=== PATIENT | male | born 1950 | race Caucasian/White ===

== ENCOUNTER 2018-10-22 16:27 | Inpatient (IN) ==
[2018-10-22 17:53] LABS: BILIRUBIN URINE NEGATIVE (NEGATIVE); BLOOD URINE TRACE (NEGATIVE); CLARITY CLEAR (CLEAR); COLOR YELLOW; GLUCOSE URINE NEGATIVE (NEGATIVE); KETONE URINE 1+(Small) mg/dL (NEGATIVE); LEUKOCYTES URINE 1+ (NEGATIVE); NITRITE URINE NEGATIVE (NEGATIVE); PH URINE 6.5; PROTEIN URINE 1+(30 mg/dL) mg/dL (NEGATIVE); UROBILINOGEN URINE 1 mg/dL
[2018-10-22 18:00] LABS: URINE SOURCE CLEAN CATCH
[2018-10-22 18:01] LABS: URINE RBC <10 /HPF (<10); URINE WBC 20-40 /HPF (<10)
[2018-10-22 18:02] LABS: URINE BACTERIA 2+ /HFP; URINE CAST NONE SEEN /LPF; URINE CRYSTAL NONE SEEN /HPF; URINE EPITHELIAL CELLS <10 /HPF (<10); URINE YEAST NONE SEEN /HPF
[2018-10-22] MEDS ORDERED: MOTRIN PO ONE (21:02)
[2018-10-22 21:08] LABS: BASO# 0.01 X1000 (0.0-0.2); BASO% 0.1 % (0.0-0.8); EOS# 0.01 X1000 (0.0-0.7); EOS% 0.1 % (0.0-10.0); HEMATOCRIT 35.9 % (42.0-52.0); HEMOGLOBIN 12.3 g/dL (14.0-18.0); IMM GRAN# 0.08 X1000 (0.0-0.04); IMM GRAN% 0.7 % (0.0-0.5); LYMPH# 1.68 X1000 (1.2-3.4); LYMPH% 15.3 % (20.5-51.1); MCH 31.9 PG (27-31); MCHC 34.3 g/dL (33-37); MONO# 1.03 X1000 (0.11-0.59); MONO% 9.4 % (1.7-9.3); MPV 9.4 FL (7.4-10.4); NEUT# 8.15 X1000 (1.4-6.5); NEUT% 74.4 % (42.2-75.2); PLT 132 X1000 (130-400); RBC 3.86 XMIL (4.7-6.1); RDW 13.8 % (11.5-14.5); WBC 10.96 X1000 (4.8-10.8)
[2018-10-22 21:14] LABS: AGAP 13; BUN 18 mg/dL (8-22); CALCIUM 8.4 mg/dL (8.8-10.2); CHLORIDE 96 mmol/L (98-107); COSMO 268; ESTIMATED GFR > 60; GLUCOSE 121 mg/dL (70-104); POTASSIUM 4.7 mmol/L (3.5-5.1); SODIUM 132 mmol/L (136-145); TCO2 23 mmol/L (25-35)
[2018-10-22] MEDS ORDERED: TYLENOL PO ONE (21:40)
--- NOTE | 2018-10-22 21:48 | Diag Imaging Result Doc PS360 ---
EXAM: CT RENAL STONE SEARCH 10/22/2018 HISTORY: UTI,fever TECHNIQUE: This exam was performed using automated exposure control, adjustment of mA or kV according to patient size, and/or use of iterative reconstruction technique. COMMENT: There are linear opacities in both lower lobes consistent with atelectasis or fibrosis. There are no previous studies. There is no evidence of nephrolithiasis or hydronephrosis. There are no apparent gallstones. There is stool throughout the colon. Small bowel is not distended. There is no evidence of appendicitis. There is no evidence of free fluid. There is enlargement of the prostate with some periprostatic fat stranding. The prostate is nearly 7 cm in diameter transversely. There are numerous lytic lesions throughout the regional skeleton particularly in the iliac bones sacrum and lumbar spine. This is consistent with the history of multiple myeloma. IMPRESSION: Findings consistent with prostatitis. Electronically signed by Tam Triana 10/22/2018 9:45 PM
--- NOTE | 2018-10-23 00:35 | PROVIDER DOCUMENTATION ---
This chart was entered by Sonia Romero Scribe, acting as scribe for Narda Jenkins MD. HPI-Male Problem - General Chief Complaint: Male Stated Complaint: MALE Time Seen by Provider: 10/22/18 17:36 Source: patient Allergies/Adverse Reactions: Patient Allergies Allergy/AdvReac Type Severity Reaction Status Date / Time levofloxacin [From Levaquin] AdvReac ITCHING Verified 10/22/18 16:43 RELEFEN AdvReac HIVES Uncoded 10/22/18 16:42 Home Medications: Home Medication List Medication Instructions Recorded Confirmed Last Taken Type NK [No Home Medications] 10/22/18 10/22/18 Unknown History - History of Present Illness-Male Nature of Presenting Problem: pt is a 68 yr old male presenting with 1 week hx of dysuria and fever, pt reports dysuria since cystoscopy 1 week ago. Tmax 103, pt went to urgent care today and was sent here for further eval. pt denies any chest or abdominal pain, no cough, nasal drainage or sore throat. pt denies any other complaints. Location of Complaint: reports: urethral Radiation: reports: none Quality of Pain: reports: burning Severity in ED: reports: moderate Onset/Duration: reports: 1 week ago Timing: reports: still present Context/Activities at Onset: reports: other (cystoscopy 1 week ago) Urinary Symptoms: reports: dysuria. denies: hematuria, low back pain Associated Symptoms: reports: none Associated Symptoms: reports: fever/chills. denies: chest pain, cough, fatigue, nausea, vomiting, weakness Similar Symptoms Previously?: Yes Recently seen or treated by another doctor?: Yes Review of Systems - Adult - REVIEW OF SYSTEMS - ADULT Constitutional: reports: fever (tmax 103) Eyes: reports: no symptoms reported Ears, Nose, Mouth & Throat: denies: ear pain, throat pain Cardiovascular: denies: chest pain, palpitations, syncope Respiratory: denies: cough, shortness of breath Gastrointestinal: denies: abdominal pain, diarrhea, nausea, vomiting Genitourinary: reports: dysuria. denies: flank pain Musculoskeletal: denies: back pain, muscle aches, neck pain Integumentary: reports: no symptoms reported Neurological: denies: dizziness/vertigo, headache/migraines Psychiatric: reports: no symptoms reported Endocrine: reports: no symptoms reported Hematologic/Lymphatic: reports: other (report IG defeciency) Past History - Adult - PAST MEDICAL HISTORY-ADULT Review of Records: reports: Old Records Reviewed, Nursing Assessment Review, Medications Reviewed, Social history reviewed & non-contributory. Major Childhood Illnesses: reports: denies history Cardiovascular: reports: denies history Respiratory: reports: denies history Gastrointestinal: reports: denies history Obstetrical/Gynecological: reports: denies history Genitourinary: reports: denies history Musculoskeletal: reports: denies history Neurological: reports: denies history Endocrine/Immune: reports: denies history Other Conditions: reports: denies history - IMMUNIZATION STATUS Childhood Immunizations: See Nurse Assessment Flu Vaccine: See Nurse Assessment - FAMILY HISTORY Family History: reviewed, not pertinent - SOCIAL HISTORY Smoking: denies Substance Use: denies Living Situation: family Physical Exam-General - PHYSICAL EXAM-ADULT Initial Vital Signs Reviewed: Yes - CONSTITUTIONAL General Appearance: alert, no apparent distress - EYES Eyes: PERRL/EOMI - HEAD, EARS, NOSE, MOUTH & THROAT HENMT: normocephalic/atraumatic, moist mucous membranes, normal ENT inspection - NECK Neck: non-tender, full range of motion, supple, normal inspection - RESPIRATORY Respiratory: chest non-tender, lungs clear, normal breath sounds - CARDIOVASCULAR Cardiovascular: normal peripheral pulses, regular rate, rhythm, no edema - GASTROINTESTINAL (ABDOMEN) Abdominal Exam: normal bowel sounds, non tender, soft - GENITOURINARY Male Genitalia: deferred - MUSCULOSKELETAL Back Exam: no CVA tenderness, no vertebral tenderness Extremity: normal range of motion, non-tender, normal gait, normal inspection - SKIN Integumentary: normal color, normal turgor, warm/dry - NEUROLOGIC Neurologic: grossly normal, no motor/sensory deficits Progress - PLAN OF CARE/RESULTS Progress/Plan/Lab Results: Vital Signs - 8 hr 10/22/18 16:34 10/22/18 20:47 Temperature 98.9 F 102.5 F H Pulse Rate 90 90 Respiratory Rate 18 15 Blood Pressure 135/79 O2 Sat by Pulse Oximetry 95 95 Laboratory Results - last 24 hr 10/22/18 10/22/18 10/22/18 16:45 19:05 19:05 WBC 10.96 H RBC 3.86 L Hgb 12.3 L Hct 35.9 L MCV 93.0 MCH 31.9 H MCHC 34.3 RDW Std Deviation 13.8 Plt Count 132 MPV 9.4 Immature Gran % (Auto) 0.7 H Neut % (Auto) 74.4 Lymph % (Auto) 15.3 L [place] % (Auto) 9.4 H Eos % (Auto) 0.1 Baso % (Auto) 0.1 Immature Gran # (Auto) 0.08 H Neut # (Auto) 8.15 H Lymph # (Auto) 1.68 [place] # (Auto) 1.03 H Eos # (Auto) 0.01 Baso # (Auto) 0.01 Sodium Potassium Chloride Carbon Dioxide Anion Gap BUN Creatinine Estimated GFR/1.73 m2 BUN/Creatinine Ratio Glucose Calculated Osmolality Calcium Plasma Lactate PSA Diagnostic 118.60 H Urine Source CLEAN CATCH Urine Color YELLOW Urine Clarity CLEAR Urine pH 6.5 Ur Specific [place] 1.010 Urine Protein 1+(30 mg/dL) A Urine Ketones 1+(Small) A Urine Blood TRACE Urine Nitrite NEGATIVE Urine Bilirubin NEGATIVE Urine Urobilinogen 1 Urine Microscopic RBC <10 Urine WBC 1+ A Urine Microscopic WBC 20-40 A Ur Epithelial Cells <10 Urine Crystals NONE SEEN Urine Bacteria 2+ Urine Casts NONE SEEN Urine Yeast NONE SEEN Urine Glucose NEGATIVE 10/22/18 10/22/18 19:05 21:10 WBC RBC Hgb Hct MCV MCH MCHC RDW Std Deviation Plt Count MPV Immature Gran % (Auto) Neut % (Auto) Lymph % (Auto) [place] % (Auto) Eos % (Auto) Baso % (Auto) Immature Gran # (Auto) Neut # (Auto) Lymph # (Auto) [place] # (Auto) Eos # (Auto) Baso # (Auto) Sodium 132 L Potassium 4.7 Chloride 96 L Carbon Dioxide 23 L Anion Gap 13 BUN 18 Creatinine 1.0 Estimated GFR/1.73 m2 > 60 BUN/Creatinine Ratio 18 Glucose 121 H Calculated Osmolality 268 Calcium 8.4 L Plasma Lactate 1.4 PSA Diagnostic Urine Source Urine Color Urine Clarity Urine pH Ur Specific [place] Urine Protein Urine Ketones Urine Blood Urine Nitrite Urine Bilirubin Urine Urobilinogen Urine Microscopic RBC Urine WBC Urine Microscopic WBC Ur Epithelial Cells Urine Crystals Urine Bacteria Urine Casts Urine Yeast Urine Glucose Orders Category Date Time Status Admit - [facility] Routine AdmDCTranf 10/22/18 22:28 Active Vital Signs Order ROUTINE Care 10/22/18 20:[address] RENAL STONE SEARCH [CT] Stat Exams 10/22/18 21:01 Completed BLOOD CULTURE [BLDCUL] Stat Lab 10/22/18 21:10 Results BMP [BASIC METABOLIC PANEL] [CHEM] Stat Lab 10/22/18 19:05 Completed CBC WITH ELECTRONIC DIFF [HEME] Stat Lab 10/22/18 19:05 Completed LACTATE, PLASMA [CHEM] Stat Lab 10/22/18 21:10 Completed PSA DIAGNOSTIC Stat Lab 10/22/18 19:[address] W/POSS RFLX CULT [URINALYSIS] Stat Lab 10/22/18 16:45 Completed URINE CULTURE [RM] Routine Lab 10/22/18 16:45 Received Acetaminophen [Tylenol] Med 10/22/18 21:40 Discontinued 650 mg PO NOW ONE Ibuprofen [Motrin] Med 10/22/18 21:02 Discontinued 600 mg PO NOW ONE Transfer/Admit Order [TRANSFER] Routine Transfer 10/22/18 22:29 Ordered Patient care, assessment and plan discussed with the attending physician Dr. Arroyo and he agree with the plan as documented. Result Diagrams: 10/22/18 19:05 10/22/18 19:05 - REASSESSMENT Reassessment #1 Time Reassessed: 21:36 Status: unchanged (Patient has chills and fever. will admit for IV antibiotics.) - CONSULTS/PCP/HOSPITALIST Notification #1 *Consult/PCP/Hospitalist*: Dr. Noonan Time Discussed: 22:18 Consult Disposition: Admit (Hx, PE and patient care discussed. accepted.) Departure - Departure Date of Disposition Decision: 10/22/18 Time of Disposition Decision: 22:17 DIAGNOSIS: Prostatitis Qualifiers: Prostatitis type: acute Qualified Code(s): N41.0 - Acute prostatitis Fever Qualifiers: Fever type: unspecified Qualified Code(s): R50.9 - Fever, unspecified Disposition: ADMITTED INPATIENT 09 Certified Medical Emergency: Emergent Condition: Stable Referrals and Follow-Ups: None,PCP [Primary Care Provider] - - Critical Care Note This patient required my direct & personal management of CC.: No Attestation - Physician/ DELTA Attestation Patient care was provided by Advanced Practice Provider:: No The physician spent face to face time with patient:: Yes Advanced Practice Provider documentation review:: Supervising physician onsite and consulted in the evaluation and care of this patient. The physician did have a face to face encounter with the patient. This chart was documented by the indicated scribe, (Sonia Romero Scribe) and accurately reflects the services I performed and decisions made by me, Narda Jenkins MD, as attested by the provider's signature.
[2018-10-23] MEDS ORDERED: TYLENOL PO ONE (05:46)
[2018-10-23] MEDS ORDERED: ZOFRAN IV PRN (08:47)
[2018-10-23] MEDS: ROCEPHIN 1 GM in NS 50 ML IV SCH (09:47)
[2018-10-23] MEDS: NS 1,000 ML IV SCH (09:50)
[2018-10-23] MEDS: FLOMAX PO SCH (09:50)
--- NOTE | 2018-10-23 10:40 | HISTORY AND PHYSICAL ---
PRIMARY CARE PHYSICIAN: None. CHIEF COMPLAINT: Low back pain, pain with urination, and a fever that has been present for approximately 1 week and progressively worsened. HISTORY OF PRESENTING ILLNESS: This is a 68-year-old male, who presented to [facility] ER after he was seen at [facility] and diagnosed with a UTI, but they told him that since he had a cystoscopy approximately 1 week ago that he would need IV antibiotics so he presented to the emergency room. On arrival, he was found to have a white blood cell count of 10.96, sodium of 132. PSA diagnostic of 118.6. His urinalysis showed negative nitrites, 1+ white blood cells, and 2+ bacteria. We did a renal CT that showed findings consistent with prostatitis. Approximately 4 hours after arriving, he had a temperature of 102.5 degrees. He notes that he has been being followed at [facility], and had some abnormal lab values showing some type of autoimmune disorder and a possible blood cancer, but they have not been able to pinpoint at this time a specific diagnosis of what is going on currently. He was recently placed on tamsulosin for some BPH issues. He had a cystoscopy done by his urologist in [place], Dr. Michel who wanted to do a "resume" procedure that inserts semen into the prostate in order to shrink it but the cystoscopy had to be performed first in order to determine if he was a candidate for this procedure. He has had some CVA tenderness, frequency, dysuria and fever so he is being admitted for further evaluation and treatment. PAST MEDICAL HISTORY: BPH. PAST SURGICAL HISTORY: Cystoscopy one week ago. FAMILY HISTORY: Reviewed and noncontributory. SOCIAL HISTORY: He currently lives with family. Denies any tobacco, alcohol or illicit drug use. ALLERGIES: He is allergic to Levaquin and Relafen. HOME MEDICATIONS: Tamsulosin 0.4 mg p.o. daily. LABORATORY DATA: White blood cell count of 10.96, hemoglobin 12.3, hematocrit 35.9, and platelets 132,000. Sodium 132, potassium 4.7, chloride 96, CO2 23, BUN of 18, creatinine 1, glucose 121, plasma lactate of 1.4. PSA diagnostic of 118.60. Urinalysis showed negative nitrites, 1+ white blood cells, 2+ bacteria. Renal CT showed findings consistent with prostatitis. REVIEW OF SYSTEMS: He was positive for a subjective fever and chills. Denied any blurred vision. He has had some dizziness. Denied any chest pain, coughing, or shortness of breath. Denied any abdominal pain, but had some low back pain, CVA tenderness, dysuria or frequency. Denied any nausea, vomiting, constipation, diarrhea, or burning. PHYSICAL EXAMINATION: On arrival, he had a temperature of 98.9 degrees, pulse 90, respirations 18 and was saturating 95% on room air. Approximately 4 hours after arriving, he had a temperature of 102.5 degrees, blood pressure was 135/79 and currently temperature is down to 98.5. GENERAL: This is a 68-year-old male, who is sitting up in the bed and answers questions appropriately. HEENT: Normocephalic, atraumatic. Normal ENT inspection. Oropharynx and nares are clear. EYES: Pupils are equal, round, reactive to light and accommodation. Extraocular movements are intact. NECK: Normal inspection. Normal range of motion. LUNGS: Clear to auscultation bilaterally with equal lung expansion and chest wall movement. HEART: Regular rate and rhythm. No murmurs, rubs, or gallops. ABDOMEN: Soft, nontender, nondistended. Bowel sounds are present x4 quadrants. He did have some CVA tenderness with low back pain. MUSCULOSKELETAL: He had 5/5 strength x4 extremities. NEUROLOGICAL: Cranial nerves 2-12 appear grossly intact. ASSESSMENT: 1. Prostatitis. 2. Hyponatremia. 3. Possible urinary tract infection. Awaiting urine culture results. 4. BPH without obstruction. PLAN: He has been admitted to the medical unit at [facility], and placed on a regular diet. Blood culture and urine cultures are pending. I will place on normal saline at 125 mL an hour, Rocephin 1 gram IV q.24. Continue his home medications and further orders after being seen by attending. Dictated by ISAK Benton for Hussain Brandt MD cc: ISAK Benton MD Gregory S. Cheatham, MD [facility]
[2018-10-23] MEDS ORDERED: AMBIEN PO PRN (13:18)
[2018-10-23] MEDS ORDERED: VANCOMYCIN IV PER PHARMACY MISC SCH (13:30)
--- NOTE | 2018-10-23 13:36 | HISTORY AND PHYSICAL ---
HISTORY OF PRESENT ILLNESS: Patient came in with fever up to 103. He went to [facility]. They told him since he had a recent cystoscopy, he needed to go to the ER. He was found to have prostatitis and was admitted for treatment. He has had a cystoscopy for the purposes of BPH. His urine did show pyuria, although not grossly so. Urine culture and blood cultures are negative thus far. He has been placed on Rocephin now. Physical exam is really unremarkable. He has not had any fevers since last night. Workup in the ER was unremarkable, except for CT showed also signs consistent with prostatitis, although he is still having some degree of dysuria. ASSESSMENT AND PLAN: In any case, he was admitted for prostatitis. Certainly could be Staph because he had recent hospitalization, so we will continue to follow closely. He is allergic unfortunately to fluoroquinolones. He gets tenosynovitis, tendinitis, so we cannot use that. So our purposes here, we will treat him with Rocephin. I am going to add vancomycin just to better cover Staph, but we could strongly consider discharging him on Bactrim for a month, which should cover Staph. We are just waiting final culture results. Hopefully, we will get those tomorrow. cc: MD Ke Johnson MD
[2018-10-23] MEDS: VANCOMYCIN 2,000 MG in NS 500 ML IV SCH (15:22)
[2018-10-23] MEDS: TYLENOL PO PRN (20:17)
[2018-10-24] MEDS: NS 1,000 ML IV SCH (04:24)
[2018-10-24 06:24] LABS: BASO# 0.02 X1000 (0.0-0.2); BASO% 0.2 % (0.0-0.8); EOS# 0.03 X1000 (0.0-0.7); EOS% 0.3 % (0.0-10.0); HEMATOCRIT 34.8 % (42.0-52.0); HEMOGLOBIN 11.7 g/dL (14.0-18.0); IMM GRAN# 0.18 X1000 (0.0-0.04); LYMPH# 1.74 X1000 (1.2-3.4); LYMPH% 19.7 % (20.5-51.1); MCH 31.1 PG (27-31); MCHC 33.6 g/dL (33-37); MCV 92.6 FL (81-99); MONO# 0.98 X1000 (0.11-0.59); MONO% 11.1 % (1.7-9.3); MPV 9.2 FL (7.4-10.4); NEUT# 5.89 X1000 (1.4-6.5); NEUT% 66.7 % (42.2-75.2); PLT 155 X1000 (130-400); RBC 3.76 XMIL (4.7-6.1); RDW 14.2 % (11.5-14.5); WBC 8.84 X1000 (4.8-10.8)
[2018-10-24] MEDS: TYLENOL PO PRN (06:31)
[2018-10-24 06:48] LABS: AGAP 11; BUN 15 mg/dL (8-22); CALCIUM 8.5 mg/dL (8.8-10.2); CHLORIDE 100 mmol/L (98-107); COSMO 273; CREATININE 0.9 mg/dL (0.7-1.2); ESTIMATED GFR > 60; GLUCOSE 111 mg/dL (70-104); POTASSIUM 4.3 mmol/L (3.5-5.1); SODIUM 136 mmol/L (136-145); TCO2 25 mmol/L (25-35)
[2018-10-24 07:19] LABS: EOS 1 % (1-10); LYMPHS 26 % (21-51); MONO 11 % (1-9); SEGS 61 % (42-75)
[2018-10-24] MEDS: ROCEPHIN 1 GM in NS 50 ML IV SCH (08:43)
[2018-10-24] MEDS: FLOMAX PO SCH (08:44)
[2018-10-24] MEDS: VANCOMYCIN 2,000 MG in NS 500 ML IV SCH (09:37)
--- NOTE | 2018-10-24 14:43 | PROGRESS NOTE ---
DATE: 10/24/2018 SUBJECTIVE: The patient has no complaints. He felt a little off this morning, and he thought he was having a fever, so he went ahead and he took his Tylenol this morning, but he has not had an actual fever since yesterday. He is still complaining of difficulty urinating, pain kind od internally. PROBLEM LIST: 1. Prostatitis, likely iatrogenic or associated with now gram-positive cocci. It is suspicious for Staph. He is on vancomycin and Rocephin until we can get further data. He has defervesced though, and he seems to be doing better. 2. Benign prostatic hypertrophy. We will continue Flomax. He has had issues with Flomax before associated with orthostasis. Will just have to be careful. I think we can hold off on further fluid. 3. 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 We are aware of diagnosis and follow. He does have some osteolytic lesions, which have been worked up previously with his oncologist Dr. Richardson. We will defer to him. His PSA is elevated, but according to the patient was 2.8 in June. I do not think he has prostate cancer at this point, but he is being followed closely by Urology and Dr. Michel in [place]. We will arrange close follow up with him, especially since he has prostatitis after a cystoscopy. Anticipate discharge tomorrow. cc: Hussain Brandt MD
[2018-10-25] MEDS: VANCOMYCIN 2,000 MG in NS 500 ML IV SCH (02:37)
[2018-10-25 05:42] VITALS: BP 126/65
[2018-10-25 06:47] LABS: BASO# 0.08 X1000 (0.0-0.2); BASO% 1.4 % (0.0-0.8); EOS# 0.07 X1000 (0.0-0.7); EOS% 1.3 % (0.0-10.0); HEMATOCRIT 30.2 % (42.0-52.0); HEMOGLOBIN 10.4 g/dL (14.0-18.0); IMM GRAN# 0.35 X1000 (0.0-0.04); IMM GRAN% 6.3 % (0.0-0.5); LYMPH# 1.53 X1000 (1.2-3.4); LYMPH% 27.5 % (20.5-51.1); MCHC 34.4 g/dL (33-37); MCV 92.9 FL (81-99); MONO# 0.74 X1000 (0.11-0.59); MONO% 13.3 % (1.7-9.3); MPV 9.3 FL (7.4-10.4); NEUT# 2.79 X1000 (1.4-6.5); NEUT% 50.2 % (42.2-75.2); PLT 162 X1000 (130-400); RBC 3.25 XMIL (4.7-6.1); RDW 14.1 % (11.5-14.5); WBC 5.56 X1000 (4.8-10.8)
[2018-10-25 06:55] LABS: AGAP 8; BUN 15 mg/dL (8-22); CALCIUM 8.3 mg/dL (8.8-10.2); CHLORIDE 105 mmol/L (98-107); COSMO 277; CREATININE 0.8 mg/dL (0.7-1.2); ESTIMATED GFR > 60; GLUCOSE 105 mg/dL (70-104); POTASSIUM 3.8 mmol/L (3.5-5.1); SODIUM 138 mmol/L (136-145); TCO2 26 mmol/L (25-35)
[2018-10-25 07:06] LABS: BANDS 4 % (0-1); EOS 3 % (1-10); LYMPHS 21 % (21-51); MONO 10 % (1-9); SEGS 62 % (42-75)
[2018-10-25] MEDS: FLOMAX PO SCH (09:29)
[2018-10-25] MEDS: ROCEPHIN 1 GM in NS 50 ML IV SCH (09:31)
[2018-10-25] MEDS ORDERED: AMOXIL PO SCH (13:00)
--- NOTE | 2018-10-25 15:28 | DISCHARGE SUMMARY ---
ADMISSION DATE: 10/23/2018 DISCHARGE DATE: 10/25/2018 DISCHARGE DIAGNOSIS: Prostatitis. HISTORY: The patient is doing okay. On the day of discharge, he had a little bit of loose stool but I am not sure if that may not have been the first bowel movement he has had in a while. His white count is down. He has been afebrile now for over 48 hours. Micro shows Enterococcus faecalis which is pansensitive. The plan will be to discharge on amoxicillin, currently regulated. My recommendations are for 6 weeks for prostatitis, seems like a bit long and puts him at risk for C. Diff which we discussed about. I would at least treat for a month. I think that would be reasonable, and that is what I told him. Follow up with his urologist who can decide. Discharge condition is stable. Continue regular medications. We reviewed C. Diff risk and dehydration, and things of that nature. He will need to follow up with his urologist in about a couple of weeks. This is a [id number] encounter note with ISAK Benton. cc: Hussain Brandt MD
--- NOTE | 2018-10-25 15:40 | DISCHARGE SUMMARY ---
ADMISSION DATE: 10/23/2018 DISCHARGE DATE: 10/25/2018 ADMISSION DIAGNOSES: 1. Prostatitis. 2. Hyponatremia. 3. Possible urinary tract infection; awaiting urine culture results. 4. Benign prostatic hypertrophy without obstruction. DISCHARGE DIAGNOSES: 1. Prostatitis, status post a cystoscopy 1 week ago. 2. Hyponatremia, resolved. 3. Enterococcus faecalis urinary tract infection. 4. Benign prostatic hypertrophy without obstruction. SUMMARY OF FINDINGS: This is a 68-year-old male who presented to the ER after he had been seen at [facility] and was diagnosed with a UTI, but they told him that since he had a cystoscopy approximately 1 week ago that he would need IV antibiotics. So he presented to the emergency room, was found to have a white blood cell count of 10.96, sodium of 132, and PSA diagnostic was 118.6. Urinalysis showed negative nitrites, but 1+ white blood cells, 2+ bacteria. We did a renal CT that showed findings consistent with prostatitis. He had a fever of 102.5 approximately 4 hours after arriving. He notes that he is being followed at [facility] as he has had some abnormal labs that present as MGUS which has given him some relative degree of some immunodeficiency but they have not pinpointed the diagnosis. He is followed by his oncologist, Dr. Richardson. His urine culture grew back an Enterococcus faecalis. We placed him on vancomycin and Rocephin initially, continued his Flomax. He has remained now afebrile for greater than 24 hours and it is felt that he can safely be discharged home. DISCHARGE MEDICATIONS: He will be on a prescription of amoxicillin 500 mg p.o. t.i.d., #146 with no refills, and he will need this medication for approximately 6 weeks. FOLLOW UP: He will follow up with his primary care physician and with his oncologist in the next 1 to 2 weeks and call their office for an appointment. He will also follow up with his urologist as previously scheduled. TIME SPENT: 32 minutes. Dictated by ISAK Benton for Hussain Brandt MD cc: ISAK Benton MD [facility]
== END 2018-10-25 14:40 | disposition home or self-care (01) | DRG 863 ==
LOC: P.ED 16:27 → SUATTDRO 10-23 00:22 → P.MEDSURG 10-23 00:22
PROVIDERS: ATTEND Internal Medicine
CPT/HCPCS: 36415; 74176; 80048; 81001; 83605; 84153; 85025; 87040; 87077; 87088; 87186; 99285; A9270; J0696; J3370; J7030; J7040